=== PATIENT | female | born 1995 | race African-American/Black ===

== ENCOUNTER 2016-06-09 09:14 | Emergency (ER) | payer OTHER ==
[2016-06-09 09:35] VITALS: BP 121/58; PULSE 88; TEMP 98.4; BMI 30.2
[2016-06-09] MEDS ORDERED: ALBUTEROL SO4 2.5/IPRATROPIUM 0.5 INH SOL 3 ML VIAL.NEB. NEB ONE ×2 (10:40→10:45)
[2016-06-09] MEDS ORDERED: predniSONE 20 MG TABLET (UD) PO ONE (10:41)
[2016-06-09] MEDS ORDERED: predniSONE 20 MG TABLET (UD) ONE (10:45)
--- NOTE | 2016-06-09 11:26 | PDOC ---
History of Present Illness - General Chief Complaint: Asthma Stated Complaint: ASTHMA Time Seen by Provider: 06/09/16 10:26 History Source: Patient Exam Limitations: No Limitations - History of Present Illness Initial Comments: 06/09/16 11:22 CC cough congesion, increased wheezing Timing/Duration: reports: week Severity: reports: mild Possible Cause: Yes: frequent episodes Modifying Factors: improves with: albuterol inhaler, albuterol nebulizer Associated Symptoms: reports: cough, nasal congestion. denies: dizziness, fever /chills Past History - Past Medical History Allergies/Adverse Reactions: Allergies Allergy/AdvReac Type Severity Reaction Status Date / Time peanut Allergy Severe Swelling Verified 06/09/16 09:31 Home Medications: Ambulatory Orders NK [No Known Home Medication] 06/09/16 Asthma: Yes - Immunization History Immunization Up to Date: Yes - Psycho/Social/Smoking Cessation Hx Anxiety: No Suicidal Ideation: No Smoking History: Never smoked Have you smoked in the past 12 months: No Information on smoking cessation initiated: No Hx Alcohol Use: Yes (SAMANTHA) Drug/Substance Use Hx: No Substance Use Type: Alcohol, Marijuana Review of Systems - Review of Systems Constitutional: No: Chills, Fever, Malaise HEENTM: Yes: Nose Congestion. No: Ear Pain, Throat Swelling Respiratory: Yes: Cough, Wheezing Cardiac (ROS): No: Symptoms Reported, Chest Pain ABD/GI: No: Symptoms Reported *Physical Exam - Vital Signs Last Vital Signs Temp Pulse Resp BP Pulse Ox 98.4 F 88 18 121/58 100 06/09/16 09:32 06/09/16 09:32 06/09/16 09:32 06/09/16 09:32 06/09/16 09:32 - Physical Exam General Appearance: Yes: Appropriately Dressed. No: Apparent Distress HEENT: positive: Nasal Congestion. negative: TMs Normal, Pharynx Normal Neck: positive: Supple. negative: Tender, Rigid, Lymphadenopathy (R), Lymphadenopathy (L) Respiratory/Chest: positive: Normal Breath Sounds, Accessory Muscle Use. negative: Stridor, Wheezing Cardiovascular: negative: Regular Rhythm, Regular Rate ED Treatment Course - ADDITIONAL ORDERS Additional order review: Laboratory Results 06/09/16 10:44 Urine HCG, Qual Negative - Medications Given in the ED: ED Medications Discontinued Medications Generic Name Dose Route Start Last Admin Trade Name Freq PRN Reason Stop Dose Admin Albuterol/Ipratropium 1 amp 06/09/16 10:40 06/09/16 10:47 Duoneb - NEB 06/09/16 10:41 1 amp ONCE ONE Administration Medical Decision Making - Medical Decision Making 06/09/16 11:24 feeling better post single combivent; prednisone started in ED now *DC/Admit/Observation/Transfer Diagnosis at time of Disposition: Asthma exacerbation - Discharge Dispostion Disposition: HOME Condition at time of disposition: Stable Admit: No - Patient Instructions Additional Instructions: return for increased symptoms; asthma med refills
== END 2016-06-09 11:29 | disposition home or self-care (01) ==
LOC: JERFT 09:14
PROC: 3E0F7GC Introduction of Other Therapeutic Substance into Respiratory Tract, Via Natural or Artificial Opening (ICD-10-PCS; principal; 2016-06-09)
DX: J45.901 Unspecified asthma with (acute) exacerbation (principal)
CPT/HCPCS: 84703; 94640; 99281-25

== ENCOUNTER 2021-05-23 07:15 | Emergency (ER) | payer OTHER ==
[2021-05-23 07:32] VITALS: BP 102/69; PULSE 93; TEMP 98.5; BMI 27.4
[2021-05-24 13:06] LABS: SARS-CoV-2 NAA Not Detected (Not Detected)
== END 2021-05-23 07:50 | disposition home or self-care (01) ==
LOC: JER 07:15 → JERFT 07:15
DX: J06.9 Acute upper respiratory infection, unspecified (principal)
CPT/HCPCS: 87804; 87807; 99283-25; C9803; U0003; U0005